=== PATIENT | female | born 1970 | race African-American/Black ===

== ENCOUNTER 2018-06-10 09:10 | Emergency (ER) | payer OTHER ==
[~2018-06-10] VITALS: Ht 162.6 cm; Wt 144.7 kg
[2018-06-10 11:15] VITALS: BP 132/80
== END 2018-06-10 11:32 | disposition home or self-care (01) ==
LOC: ER 09:14
DX: J40 Bronchitis, not specified as acute or chronic (principal); Z86.39 Personal history of other endocrine, nutritional and metabolic disease
CPT/HCPCS: 71046

== ENCOUNTER 2018-06-27 14:31 | Emergency (ER) | payer OTHER ==
[~2018-06-27] VITALS: Ht 160 cm; Wt 143.8 kg
[2018-06-27 14:43] VITALS: BP 150/83
[2018-06-27] MEDS ORDERED: KETOROLAC TROMETH 60MG/2ML VIAL IM ONE (16:00)
== END 2018-06-27 16:34 | disposition home or self-care (01) ==
LOC: ER 14:31
DX: S83.91XA Sprain of unspecified site of right knee, initial encounter (principal); S93.402A Sprain of unspecified ligament of left ankle, initial encounter; E07.9 Disorder of thyroid, unspecified; Z88.8 Allergy status to other drugs, medicaments and biological substances; Z88.0 Allergy status to penicillin; Z88.1 Allergy status to other antibiotic agents; W01.0XXA Fall on same level from slipping, tripping and stumbling without subsequent striking against object, initial encounter; Y93.89 Activity, other specified; Y99.8 Other external cause status; Y92.512 Supermarket, store or market as the place of occurrence of the external cause
CPT/HCPCS: 73562; 96372; 99283; J1885

== ENCOUNTER 2018-09-10 07:08 | Emergency (ER) | payer OTHER ==
[~2018-09-10] VITALS: Ht 162.6 cm; Wt 140.6 kg
[2018-09-10 07:15] VITALS: BP 124/81
== END 2018-09-10 08:42 | disposition home or self-care (01) ==
LOC: ER 07:08
DX: J03.90 Acute tonsillitis, unspecified (principal); Z86.39 Personal history of other endocrine, nutritional and metabolic disease